=== PATIENT | male | born 1965 | race Caucasian/White ===

== ENCOUNTER 2017-01-16 09:52 | Day surgery (SDC) | payer OTHER ==
[~2017-01-16] VITALS: Ht 180.3 cm; Wt 126.9 kg
[2017-01-16] MEDS ORDERED: GLUCOPHAGE500 MG/TAB PO (10:42)
[2017-01-16] MEDS ORDERED: FLOMAX 0.40.4 MG/CAP PO (10:42)
[2017-01-16] MEDS ORDERED: ZOLOFT 100MG100 MG PO (10:43)
[2017-01-16] MEDS ORDERED: ASPIRIN 81M81 MG/TA2 PO (10:43)
[2017-01-16] MEDS ORDERED: LIPITOR 40MG TA40 MG PO (10:43)
[2017-01-16] MEDS ORDERED: NATURAL E400 IU PO (10:43)
[2017-01-16] MEDS ORDERED: MULTI VITAMINS1 TAB PO (10:44)
[2017-01-16] MEDS ORDERED: OMNICEF 300MG300 MG PO (10:45)
[2017-01-16] MEDS ORDERED: PERCOCET 325 MG1 TA2 PO (10:45)
[2017-01-16] MEDS ORDERED: NORCO 325 MG-7.1 TAB PO (10:45)
[2017-01-16] MEDS ORDERED: NORCO 325 MG-51 TAB PO (10:45)
[2017-01-16] MEDS ORDERED: PERCOCET 325 MG1 TA3 PO (10:46)
[2017-01-16 11:16] VITALS: BP 149/90; PULSE 73; TEMP 98.5
[2017-01-16 13:02] VITALS: BP 112/69; PULSE 67; TEMP 98.4
[2017-01-16 13:15] VITALS: BP 135/88; PULSE 65
[2017-01-16 13:42] VITALS: BP 118/81; PULSE 68; TEMP 98.2
== END 2017-01-16 13:55 | disposition home or self-care (01) ==
LOC: SDCO 09:52
DX: N20.1 Calculus of ureter (principal); E11.8 Type 2 diabetes mellitus with unspecified complications; Z79.84 Long term (current) use of oral hypoglycemic drugs
CPT/HCPCS: C1769; C2617; J2704; J3010; J7030; Q9967

== ENCOUNTER 2017-02-01 12:52 | Day surgery (SDC) | payer OTHER ==
[~2017-02-01] VITALS: Ht 180.3 cm; Wt 120.6 kg
[~2017-02-01 12:52] MED LIST: ASPIRIN 81M81 MG/TA2 PO; FLOMAX 0.40.4 MG/CAP PO; GLUCOPHAGE500 MG/TAB PO; LIPITOR 40MG TA40 MG PO; MULTI VITAMINS1 TAB PO; NATURAL E400 IU PO; NORCO 325 MG-51 TAB PO; NORCO 325 MG-7.1 TAB PO; OMNICEF 300MG300 MG PO; PERCOCET 325 MG1 TA2 PO; PERCOCET 325 MG1 TA3 PO; ZOLOFT 100MG100 MG PO
[2017-02-01 13:41] VITALS: BP 153/90; PULSE 76; TEMP 97.6
[2017-02-01] MEDS ORDERED: CIPRO 500MG TA500 MG PO (13:58)
[2017-02-01 16:40] VITALS: BP 142/90; PULSE 64; TEMP 97.4
[2017-02-01 16:51] VITALS: TEMP 97.3
[2017-02-01 16:55] VITALS: BP 138/92; PULSE 62
== END 2017-02-01 17:20 | disposition home or self-care (01) ==
LOC: SDCO 12:52
DX: N20.1 Calculus of ureter (principal); E11.9 Type 2 diabetes mellitus without complications; E78.00 Pure hypercholesterolemia, unspecified
CPT/HCPCS: C1769; J0690; J1100; J1885; J2405; J2704; J2765; J3010; J7030; J7042

== ENCOUNTER 2019-10-01 14:57 | Day surgery (SDC) | payer OTHER ==
[~2019-10-01] VITALS: Ht 180.3 cm; Wt 122.7 kg
[~2019-10-01 14:57] MED LIST changes: +CIPRO 500MG TA500 MG PO
[2019-10-01] MEDS ORDERED: RT ADVAIR HFA 2312 G IH (15:17)
[2019-10-01] MEDS ORDERED: MICARDIS20 MG PO (15:17)
[2019-10-01] MEDS ORDERED: PROAIR HFA0.09 MG/AC IH (15:17)
--- NOTE | 2019-10-01 16:28 | NUR ---
The patient was taken to the operating room via cart at this time. The patient's chart was taken with him to surgery. The patient's belongings will be taken over to the recovery room to be transferred up with him to 3rd floor after surgery.
[2019-10-01 16:50] VITALS: BP 147/86; PULSE 66; TEMP 97.6
[2019-10-01 17:55] VITALS: BP 121/75; PULSE 56
--- NOTE | 2019-10-01 17:55 | NUR ---
returned to room from PACU per bed, awake and alert, IV infusing per dial-a-flow and set at 75ml/hr, ambulated from cart to bed, states is having some rectal pressure but is better than when he was in PACU, at bedside, full assessment completed, see intervention for further info
[2019-10-01 18:13] VITALS: TEMP 98.1
[2019-10-01 18:15] VITALS: BP 108/69; PULSE 55
[2019-10-01 18:30] VITALS: BP 115/71; PULSE 57
--- NOTE | 2019-10-01 18:30 | NUR ---
general diet tray in to patient, sitting up and eating now
[2019-10-01 18:45] VITALS: BP 106/56; PULSE 72
--- NOTE | 2019-10-01 18:50 | NUR ---
bedside shift report given to LIVIER Cuenca
--- NOTE | 2019-10-01 19:15 | NUR ---
Reviewed discharge instructions with patient and spouse. SL dc'd from left hand, angiocath intact. Ready for discharge.
--- NOTE | 2019-10-01 19:25 | NUR ---
Discharged via ambulatory status as patient refused w/c ride. Copy of discharge instructions sent with patient as well as personal belongings.
== END 2019-10-01 19:25 | disposition home or self-care (01) ==
LOC: SDCO 14:57 → JCC 18:00 → SDCO 18:00
DX: N20.1 Calculus of ureter (principal); R39.15 Urgency of urination; R31.9 Hematuria, unspecified; E11.9 Type 2 diabetes mellitus without complications; E78.00 Pure hypercholesterolemia, unspecified; E66.9 Obesity, unspecified; G47.33 Obstructive sleep apnea (adult) (pediatric); Z79.82 Long term (current) use of aspirin; Z79.84 Long term (current) use of oral hypoglycemic drugs; Z68.37 Body mass index [BMI] 37.0-37.9, adult; Z99.89 Dependence on other enabling machines and devices; Z82.49 Family history of ischemic heart disease and other diseases of the circulatory system
CPT/HCPCS: OP; C1769; C2617; J0690; J1100; J1885; J2405; J2704; J3010; J7120; Q9967